=== PATIENT | female | born 1955 | race Caucasian/White ===

== ENCOUNTER 2022-11-15 19:04 | Emergency (ER) | payer MEDICARE, MEDICAID, SELFPAY ==
[2022-11-15 19:08] VITALS: BP 173/82; PULSE 74; RESP 18; TEMP 36.8; O2SAT 99; BMI 19.3
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
--- NOTE | 2022-11-15 19:55 | ECG_ITS ---
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
[2022-11-15 20:23] LABS: Basophils Percent Auto 0.4 % (0.2-2.0); Eosinophils Absolute Auto 0.1 10^3/uL (0.0-0.7); Eosinophils Percent Auto 1.9 % (0.9-7.0); Hematocrit 36.1 % (36.0-48.0); Hemoglobin 11.6 g/dL (12.0-16.0); Immature Granulocytes Abs Auto 0.03 10^3/uL (0.00-0.03); Immature Granulocytes Pct Auto 0.4 % (0.0-0.5); Lymphocytes Absolute Auto 1.8 10^3/uL (1.2-3.8); Lymphocytes Percent Auto 23.4 % (20.5-60.0); Mean Corpuscular HGB Conc 32.1 g/dL (29.9-35.2); Mean Corpuscular Hemoglobin 29.4 pg (26.7-34.0); Mean Corpuscular Volume 91.4 fL (81.0-99.0); Mean Platelet Volume 10.6 fL (9.5-13.5); Monocytes Absolute Auto 0.5 10^3/uL (0.3-0.8); Monocytes Percent Auto 6.5 % (1.7-12.0); Neutrophils Absolute Auto 5.1 10^3/uL (1.4-6.5); Neutrophils Percent Auto 67.4 % (43.0-75.0); Platelet Count 217 10^3/uL (150-450); Red Blood Count 3.95 10^6/uL (4.20-5.40); Red Cell Distribution Width 13.1 % (11.0-15.0); White Blood Count 7.5 10^3/uL (4.0-11.0)
[2022-11-15 20:44] LABS: Bilirubin Urine NEGATIVE (NEGATIVE); Blood Urine TRACE-I (NEGATIVE); Clarity Urine CLEAR (CLEAR); Color Urine LT. YELLOW (YELLOW); Glucose Urine UA NEGATIVE (NEGATIVE); Ketones Urine NEGATIVE (NEGATIVE); Leukocyte Esterase Urine SMALL (NEGATIVE); Nitrite Urine NEGATIVE (NEGATIVE); Protein Urine NEGATIVE (NEG/TRACE); Urobilinogen Urine 0.2 EU/dL (0.2-1.0)
[2022-11-15 20:45] LABS: Alanine Aminotransferase 13 U/L (14-59); Albumin Globulin Ratio 1.3; Albumin Level 3.8 g/dL (3.4-5.0); Alkaline Phosphatase 58 U/L (46-116); Anion Gap 10.1; Aspartate Amino Transferase 12 U/L (15-37); Bilirubin Total 0.3 mg/dL (0.2-1.0); Calcium 8.7 mg/dL (8.5-10.1); Carbon Dioxide 27.7 mmol/L (21.0-32.0); Chloride 105 mmol/L (98-107); Estimated GFR (African America 57 (>=60); Estimated GFR (Non-African Ame 47 (>=60); Glucose 139 mg/dL (74-106); Potassium 4.8 mmol/L (3.5-5.1); Salicylate <2.8 mg/dL (<=19.9); Sodium 138 mmol/L (136-145); Total Protein 6.8 g/dL (6.4-8.2)
[2022-11-15 20:47] LABS: Urine Microscopic Indicated YES
[2022-11-15 20:47] LABS: Acetaminophen <2.0 ug/mL (10.0-30.0); Ethanol <3 mg/dL
[2022-11-15 20:49] LABS: Free T4 1.08 ng/dL (0.76-1.46); Thyroid Stimulating Hormone 0.795 uIU/mL (0.358-3.740)
[2022-11-15 20:52] LABS: Amphetamine Screen Urine NEGATIVE (NEGATIVE); Barbiturates Screen Urine NEGATIVE (NEGATIVE); Benzodiazepines Screen Urine POSITIVE (NEGATIVE); Buprenorphine Screen Urine NEGATIVE (NEGATIVE); Cannabinoid Screen Urine POSITIVE (NEGATIVE); Cocaine Screen Urine NEGATIVE (NEGATIVE); Methadone Screen Urine NEGATIVE (NEGATIVE); Methamphetamines Screen Urine NEGATIVE (NEGATIVE); Opiate Screen Urine NEGATIVE (NEGATIVE); Oxycodone Screen Urine NEGATIVE (NEGATIVE); Phencyclidine Screen Urine NEGATIVE (NEGATIVE); Tricyclic Antidepressant Urine NEGATIVE (NEGATIVE)
[2022-11-15 20:57] LABS: Bacteria Urine SMALL #/HPF (NONE SEEN); Cast Seen? NONE SEEN #/LPF (NONE SEEN); Crystals Seen? None Seen #/HPF (None Seen); Mucus Urine NONE SEEN (NONE SEEN); RBC Urine 0-2 #/HPF (0-2); Squamous Epithelial Cell Urine FEW #/LPF (NONE/RARE); Urine Culture Indicated YES
[2022-11-16] MEDS: DIPHENHYDRAMINE HCL 25 MG CAPSULE 50 MG PO (00:44)
[2022-11-16] MEDS: ALPRAZOLAM 1 MG TABLET PO (01:40)
== END 2022-11-16 04:00 ==
PROVIDERS: Emergency Provider Internal Medicine
DX: F23 Brief psychotic disorder (principal); F41.9 Anxiety disorder, unspecified; Z79.899 Other long term (current) drug therapy; Z94.4 Liver transplant status; F12.90 Cannabis use, unspecified, uncomplicated
CPT/HCPCS: 36415; 80053; 80179; 80307; 80320; 80329; 81001; 84439; 84443; 85025; 87086; 93005; 99284

== ENCOUNTER 2024-05-06 12:51 | Emergency (ER) | payer MEDICARE, MEDICAID, SELFPAY ==
[2024-05-06] VITALS (27 sets, daily range): BP systolic 142–166; BP diastolic 72–120; PULSE 60–86; TEMP 36.5–36.6; O2SAT 92–100; BMI 24.9
--- NOTE | 2024-05-06 13:14 | ECG_ITS ---
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
--- NOTE | 2024-05-06 13:14 | XR_ITS ---
The [address] [address] Patient Name: ERICK ROLAND MRN: [id number] date: 1955 Sex: F Assigned Patient Location: ER Current Patient Location: ER Accession/Order Number: [id number] Exam Date: 05/06/2024 14:20 Report Date: 05/06/2024 16:00 At the request of: AISLINN PARRA Procedure: XR ribs LT min 3V w CXR1V EXAM: XR ribs LT min 3V w CXR1V HISTORY: fall left rib pain COMPARISON: None. TECHNIQUE: Single frontal view of the chest as well as 3 additional views of the left ribs FINDINGS: The heart size is normal. Left lung base atelectasis is seen. Small left pleural effusion may be seen. No obvious pneumothorax is seen. Acute mild displaced fractures of the posterior eighth, ninth, 10th and 11th rib is suspected. XR/XR ribs LT min 3V w CXR1V IMPRESSION: Acute mild displaced fractures of the posterior eighth, ninth, 10th and 11th rib is suspected. Left lung base atelectasis and likely small left pleural effusion. Electronically authenticated by: KATY HOLMAN Date: 05/06/2024 16:00
--- NOTE | 2024-05-06 13:16 | CT_ITS ---
The [address] [address] Patient Name: ERICK ROLAND MRN: [id number] date: 1955 Sex: F Assigned Patient Location: ER Current Patient Location: Accession/Order Number: [id number] Exam Date: 05/06/2024 14:10 Report Date: 05/06/2024 15:14 At the request of: AISLINN PARRA Procedure: CT head/brain wo con EXAMINATION: CT head/brain wo con HISTORY: fall COMPARISON: None. TECHNIQUE: Axial CT images through the head without intravenous contrast. Dose reduction techniques were achieved by using: automated exposure control and/or adjustment of mA and /or kV according to patient size and/or use of iterative reconstruction technique. FINDINGS: There is mild prominence of the ventricles and sulci. There is no evidence for acute intracranial hemorrhage. There is mild hypoattenuation in the supratentorial white matter, most compatible with chronic microvascular ischemia. There is no mass effect or midline shift. There are no abnormal extraaxial fluid collections. CT/CT head/brain wo con IMPRESSION: Negative for acute intracranial hemorrhage or acute intracranial process. Electronically authenticated by: MAYCOL TAPIA Date: 05/06/2024 15:14
--- NOTE | 2024-05-06 13:16 | CT_ITS ---
The [address] [address] Patient Name: ERICK ROLAND MRN: [id number] date: 1955 Sex: F Assigned Patient Location: ER Current Patient Location: ER Accession/Order Number: [id number] Exam Date: 05/06/2024 14:10 Report Date: 05/06/2024 15:16 At the request of: AISLINN PARRA Procedure: CT cervical spine wo con EXAM: CT cervical spine wo con HISTORY: fall, loc COMPARISON: None. TECHNIQUE: Contiguous transaxial was obtained through the cervical spine without contrast. FINDINGS: There is no prevertebral soft tissue swelling or acute cervical spine fracture. There is minimal superior endplate depression of T1, age indeterminate. There is mild degenerative disc disease of the cervical spine with minimal retrolisthesis of C3 on C4. There is uncovertebral joint osteophytes rightest at C3-4, C4-5, and C5-6. There is multilevel and bilateral facet joint osteoarthritis with bilateral C4-5 facet ankylosis. Uncovertebral and facet joint osteoarthritis contribute to neural foraminal narrowing. Neural foraminal narrowing is most pronounced on the right at C3-4. There is mild atlantodental articulation osteoarthritis. There is carotid artery atherosclerosis. CT/CT cervical spine wo con IMPRESSION: 1. No acute cervical spine fracture. However, there is minimal superior endplate depression of T1, age indeterminate. 2. Mild degenerative disc disease of the cervical spine with minimal retrolisthesis of C3 on C4. Associated uncovertebral and facet joint osteoarthritis contribute to neural foraminal narrowing that is most pronounced on the right at C3-4. 3. Carotid artery atherosclerosis. Electronically authenticated by: ALBERTA BERRY Date: 05/06/2024 15:16
[2024-05-06 13:52] LABS: Glucometer 118 mg/dL (74-106)
[2024-05-06 14:06] LABS: Basophils Absolute Auto 0.1 10^3/uL (0.0-0.1); Basophils Percent Auto 0.4 % (0.2-2.0); Eosinophils Absolute Auto 0.1 10^3/uL (0.0-0.7); Eosinophils Percent Auto 0.4 % (0.9-7.0); Hematocrit 41.2 % (36.0-48.0); Hemoglobin 13.7 g/dL (12.0-16.0); Immature Granulocytes Abs Auto 0.06 10^3/uL (0.00-0.03); Immature Granulocytes Pct Auto 0.5 % (0.0-0.5); Lymphocytes Absolute Auto 1.9 10^3/uL (1.2-3.8); Lymphocytes Percent Auto 15.3 % (20.5-60.0); Mean Corpuscular HGB Conc 33.3 g/dL (29.9-35.2); Mean Corpuscular Hemoglobin 29.3 pg (26.7-34.0); Mean Corpuscular Volume 88.2 fL (81.0-99.0); Mean Platelet Volume 10.5 fL (9.5-13.5); Monocytes Absolute Auto 0.9 10^3/uL (0.3-0.8); Monocytes Percent Auto 7.2 % (1.7-12.0); Neutrophils Absolute Auto 9.4 10^3/uL (1.4-6.5); Neutrophils Percent Auto 76.2 % (43.0-75.0); Platelet Count 281 10^3/uL (150-450); Red Blood Count 4.67 10^6/uL (4.20-5.40); Red Cell Distribution Width 13.9 % (11.0-15.0); White Blood Count 12.3 10^3/uL (4.0-11.0)
[2024-05-06 14:24] LABS: Alanine Aminotransferase 7 U/L (14-59); Albumin Globulin Ratio 1.1; Albumin Level 4.2 g/dL (3.4-5.0); Alkaline Phosphatase 164 U/L (46-116); Anion Gap 18.7; Aspartate Amino Transferase 23 U/L (15-37); BUN Creatinine Ratio 21.8; Bilirubin Total 0.3 mg/dL (0.2-1.0); Calcium 9.9 mg/dL (8.5-10.1); Carbon Dioxide 23.3 mmol/L (21.0-32.0); Chloride 100 mmol/L (98-107); Estimated GFR (African America 40 (>=60 mL/min/1.73m^2); Estimated GFR (Non-African Ame 33 (>=60 mL/min/1.73m^2); Globulin 3.7 g/dL; Glucose 123 mg/dL (74-106); INR 1.04; Partial Thromboplastin Time 29.5 sec (22.3-36.2); Sodium 137 mmol/L (136-145); Total Protein 7.9 g/dL (6.4-8.2)
[2024-05-06 14:33] LABS: Thyroid Stimulating Hormone 1.898 uIU/mL (0.358-3.740)
[2024-05-06] MEDS: MORPHINE SULFATE 2 MG/ML SYRINGE IV ×2 (14:34→16:28)
[2024-05-06] MEDS: ONDANSETRON PF 4 MG/2 ML VIAL IV ×2 (14:35→16:28)
[2024-05-06] MEDS: 0.9 % SODIUM CHLORIDE 1,000 ML 1000 ML IV (14:43)
--- NOTE | 2024-05-06 14:46 | ED_ITS ---
Documented by User: Bea Jeter 05/06/24 17:16 HPI HPI - General Adult General Chief complaint: Fall Stated complaint: POSSIBLE SEIZURE DIZZINESS RIB PAIN FALL Time Seen by Provider: 05/06/24 13:14 Mode of arrival: walk-in History of Present Illness HPI narrative: 69-year-old female presents to the emergency room by private car. Patient had a near syncopal event while in the shower earlier today. Daughter states her mom was in the shower she heard a thud. When she walked into the shower patient was shaking and then rolled over. She was able to speak. She now has left lateral chest wall pain. Patient has what sounds like a history of hypoglycemia where she when she does not eat she becomes dizzy and passes out. The last time was around . She has not seen cardiology for this or spoke to anyone else. Daughter states she sees [facility] physicians. They have not talked to them about this problem. She is denies a known history of hypoglycemia. Bedside glucose upon arrival to the emergency room was 118. She is alert and oriented. Denies any head or neck pain. Related Data Home Medications ?Medication ?Instructions ?Recorded ?Confirmed alprazolam 0.5 mg tablet (Xanax) 0.5 mg PO .4 times daily 11/15/22 05/06/24 cholecalciferol (vitamin D3) 125 5,000 unit PO DAILY 11/15/22 05/06/24 mcg (5,000 unit) capsule fluoxetine 40 mg capsule (Prozac) 40 mg PO BID 11/15/22 05/06/24 metoprolol succinate 25 mg 25 mg PO BID 11/15/22 05/06/24 tablet,extended release 24 hr tacrolimus 0.5 mg capsule, 0.5 mg PO DAILY 11/15/22 05/06/24 immediate-release zolpidem 5 mg tablet 5 mg PO .hs 11/15/22 05/06/24 carbidopa 25 mg-levodopa 100 mg 0.5 tab PO Q8H 05/06/24 05/06/24 tablet hydrocodone 5 mg-acetaminophen 325 1 tab PO Q4H PRN pain 05/06/24 05/06/24 mg tablet memantine 10 mg tablet 10 mg PO Q12H 05/06/24 05/06/24 omeprazole 40 mg capsule,delayed 40 mg PO DAILY 05/06/24 05/06/24 release oxcarbazepine 300 mg tablet 300 mg PO DAILY 05/06/24 05/06/24 rosuvastatin 5 mg tablet 5 mg PO DAILY 05/06/24 05/06/24 sertraline 50 mg tablet 50 mg PO Q24H 05/06/24 05/06/24 sertraline 50 mg tablet (Zoloft) 50 mg PO DAILY 05/06/24 05/06/24 trazodone 50 mg tablet 50 mg PO DAILY 05/06/24 05/06/24 Allergies Allergy/AdvReac Type Severity Reaction Status Date / Time No Known Drug Allergies Allergy Verified 11/15/22 19:13 Opioid HPI Opioid Management Most Recent Opioid Data: Last Pain Scale 4 05/06/24 14:34 05/06/24 Last MAY Pain Assessment 05/06/24 14:34 Ur Phencyclidine Scrn Negative (NEGATIVE) 11/15/22 20:20 10/22 09/12 Review of Systems ROS Narrative All Systems are negative except as noted/marked.All systems reviewed and otherwise negative PFSH PFSH Social History Little interest or pleasure in doing things: not at all Feeling down, depressed, or hopeless: not at all Exam Narrative Exam Narrative: Nurses note and vital signs reviewed and patient is not hypoxic. General: The patient appears well and in no apparent distress. Patient is resting comfortably on cart. Skin: Warm, dry, no pallor noted. There is no rash noted. Head: Normocephalic, atraumatic Eye: Normal conjunctiva, no drainage, EOMI. PERRL Ears, Nose, Mouth, and Throat: oral mucosa is moist. Nares patent. Mouth without vesicles. Ear canals patent. Tm's without Erythema Cardiovascular: Regular Rate and Rhythm: left sided chest wall pain no crepitus Respiratory: Patient is in no distress, no accessory muscle use, lungs are clear to auscultation, no wheezing, rales or rhonchi Back: non-tender, no CVA tenderness bilaterally to percussion. GI: Normal bowel sounds, no tenderness to palpation, no masses appreciated. No rebound, guarding, or rigidity noted. Musculoskeletal: The patient has no evidence of calf tenderness, no pitting edema, symmetrical pulses noted bilaterally Neurological: A&O x4, normal speech Psychiatric: Cooperative Constitutional Vital Signs, click to edit/add: Last Vital Signs Temp 97.7 F 05/06/24 15:52 Pulse 81 05/06/24 16:51 Resp 19 05/06/24 16:51 BP 145/97 H 05/06/24 16:51 Pulse Ox 97 05/06/24 16:51 O2 Del Method Room Air 05/06/24 15:52 Course Vital Signs Vital signs: Vital Signs Temperature 97.9 F 05/06/24 12:57 Pulse Rate 60 05/06/24 12:57 Respiratory Rate 18 05/06/24 12:57 Blood Pressure 142/72 H 05/06/24 12:57 Pulse Oximetry 100 05/06/24 12:57 Oxygen Delivery Method Room Air 05/06/24 12:57 Temperature 97.7 F 05/06/24 15:52 Pulse Rate 81 05/06/24 16:51 Respiratory Rate 19 05/06/24 16:51 Blood Pressure 145/97 H 05/06/24 16:51 Pulse Oximetry 97 05/06/24 16:51 Oxygen Delivery Method Room Air 05/06/24 15:52 Medical Decision Making MDM Narrative Medical decision making narrative: 69-year-old female presents to the emergency room by private car. Patient had a near syncopal event while in the shower earlier today. Daughter states her mom was in the shower she heard a thud. When she walked into the shower patient was shaking and then rolled over. She was able to speak. She now has left lateral chest wall pain. Patient has what sounds like a history of hypoglycemia where she when she does not eat she becomes dizzy and passes out. The last time was around Leonila. She has not seen cardiology for this or spoke to anyone else. Daughter states she sees [facility] physicians. They have not talked to them about this problem. She is denies a known history of hypoglycemia. Bedside glucose upon arrival to the emergency room was 118. She is alert and oriented. Denies any head or neck pain. Patient presented after having a syncopal event at home. Patient reports having similar episodes after not eating for certain period of time before. She denies any chest pain denies shortness of breath. She does have left-sided rib pain. Head and neck CT were performed today as well as blood work including troponin. Patient's chest x-ray shows a 10/29/09, 11 left-sided rib fractures. Medicated here with Zofran Toradol and also given fluids. Patient's blood work CBC and CMP reviewed. Patient's BUN/creatinine were elevated consistent with dehydration. Patient states she had been drinking appropriately. Patient was given a liter of IV fluids here. Discharged home with a small prescription of Drums. She does live with her daughter. Instructed to follow-up with her primary care physician for syncopal event and rib fractures. Patient was also given Pep therapy here in the emergency room discharged home with Pep. Patient feels better after morphine and was to go ready to go home. The emergency room were discussed. Patient vital signs are stable discharge. Differential Diagnosis Differential Diagnosis: , Chest wall injury, rib fracture, near syncope Medical Records Medical records reviewed: Yes I reviewed the patient's medical records Lab Data Lab results reviewed: Yes I reviewed the patient's lab results Labs: Lab Results 05/06/24 05/06/24 Range/Units 13:45 13:49 WBC 12.3 H (4.0-11.0) 10^3/uL RBC 4.67 (4.20-5.40) 10^6/uL Hgb 13.7 (12.0-16.0) g/dL Hct 41.2 (36.0-48.0) % MCV 88.2 (81.0-99.0) fL MCH 29.3 (26.7-34.0) pg MCHC 33.3 (29.9-35.2) g/dL RDW 13.9 (11.0-15.0) % Plt Count 281 (150-450) 10^3/uL MPV 10.5 (9.5-13.5) fL Neut % (Auto) 76.2 H (43.0-75.0) % Lymph % (Auto) 15.3 L (20.5-60.0) % Stark % (Auto) 7.2 (1.7-12.0) % Eos % (Auto) 0.4 L (0.9-7.0) % Baso % (Auto) 0.4 (0.2-2.0) % Neut # (Auto) 9.4 H (1.4-6.5) 10^3/uL Lymph # (Auto) 1.9 (1.2-3.8) 10^3/uL Stark # (Auto) 0.9 H (0.3-0.8) 10^3/uL Eos # (Auto) 0.1 (0.0-0.7) 10^3/uL Baso # (Auto) 0.1 (0.0-0.1) 10^3/uL Abs Immat Gran (auto) 0.06 H (0.00-0.03) 10^3/uL Imm/Tot Granulo (auto) 0.5 (0.0-0.5) % PT 11.0 (9.0-11.6) sec INR 1.04 APTT 29.5 (22.3-36.2) sec Sodium 137 (136-145) mmol/L Potassium 5.0 (3.5-5.1) mmol/L Chloride 100 (98-107) mmol/L Carbon Dioxide 23.3 (21.0-32.0) mmol/L Anion Gap 18.7 BUN 34.0 H (7.0-18.0) mg/dL Creatinine 1.56 H (0.55-1.02) mg/dL Est GFR ( Amer) 40 L (>=60 mL/min/1.73m^2) Est GFR (Non-Af Amer) 33 L (>=60 mL/min/1.73m^2) BUN/Creatinine Ratio 21.8 Glucose 123 H (74-106) mg/dL Calcium 9.9 (8.5-10.1) mg/dL Total Bilirubin 0.3 (0.2-1.0) mg/dL AST 23 (15-37) U/L ALT 7 L (14-59) U/L Alkaline Phosphatase 164 H (46-116) U/L Troponin I High Sens 7.0 (4.0-51.3) pg/mL Total Protein 7.9 (6.4-8.2) g/dL Albumin 4.2 (3.4-5.0) g/dL Globulin 3.7 g/dL Albumin/Globulin Ratio 1.1 TSH 1.898 (0.358-3.740) uIU/mL POC Glucose 118 H (74-106) mg/dL Imaging Data Chest x-ray: Attestation: I have reviewed the pertinent imaging results. Radiologist's impression: ITS Impressions Ribs X-Ray 05/06/24 13:14 IMPRESSION: Acute mild displaced fractures of the posterior eighth, ninth, 10th and 11th rib is suspected. Left lung base atelectasis and likely small left pleural effusion. Electronically authenticated by: KATY HOLMAN Date: 05/06/2024 16:[address] 05/06/24 13:16 IMPRESSION: 1. No acute cervical spine fracture. However, there is minimal superior endplate depression of T1, age indeterminate. 2. Mild degenerative disc disease of the cervical spine with minimal retrolisthesis of C3 on C4. Associated uncovertebral and facet joint osteoarthritis contribute to neural foraminal narrowing that is most pronounced on the right at C3-4. 3. Carotid artery atherosclerosis. Electronically authenticated by: ALBERAT BERRY Date: 05/06/2024 15:[address] 05/06/24 13:16 IMPRESSION: Negative for acute intracranial hemorrhage or acute intracranial process. Electronically authenticated by: MAYCOL TAPIA Date: 05/06/2024 15:14 ECG Data Interpretation: 1307 sinus rhythm with a rate of 59 bpm WA interval 160 ms cures duration 78 ms artifact noted no STEMI Discharge Plan Discharge Chief Complaint: Fall Clinical Impression: Syncope, Fracture, ribs Patient Disposition: Home, Self-Care Time of Disposition Decision: 16:49 Condition: Good Mode of Transportation: Private Vehicle Prescriptions / Home Meds: No Action fluoxetine [Prozac] 40 mg capsule 40 mg PO BID Rx Instructions: administer in the morning and at noon/midday metoprolol succinate 25 mg tablet extended release 24 hr 25 mg PO BID alprazolam [Xanax] 0.5 mg tablet 0.5 mg PO .4 times daily cholecalciferol (vitamin D3) 125 mcg (5,000 unit) capsule 5,000 unit PO DAILY tacrolimus 0.5 mg capsule 0.5 mg PO DAILY zolpidem 5 mg tablet 5 mg PO .hs sertraline [Zoloft] 50 mg tablet 50 mg PO DAILY memantine 10 mg tablet 10 mg PO Q12H carbidopa-levodopa 25-100 mg tablet 0.5 tab PO Q8H oxcarbazepine 300 mg tablet 300 mg PO DAILY rosuvastatin 5 mg tablet 5 mg PO DAILY sertraline 50 mg tablet 50 mg PO Q24H trazodone 50 mg tablet 50 mg PO DAILY omeprazole 40 mg capsule,delayed release(DR/EC) 40 mg PO DAILY hydrocodone-acetaminophen 5-325 mg tablet 1 tab PO Q4H PRN (Reason: pain) Print Language: Ethiopian Instructions: Rib Fracture (ED), Syncope (ED) Additional Instructions: follow up with primary care physcian at [facility] on 05/09/24 Referrals: Physician,Non-Staff, [Primary Care Provider] - 1 week Discharge Date/Time: 05/06/24 17:15 Documented by User: Alejandro Myers MD 05/06/24 19:19 HPI HPI - General Adult General Chief complaint: Fall Stated complaint: POSSIBLE SEIZURE DIZZINESS RIB PAIN FALL Time Seen by Provider: 05/06/24 13:14 Related Data Home Medications ?Medication ?Instructions ?Recorded ?Confirmed alprazolam 0.5 mg tablet (Xanax) 0.5 mg PO .4 times daily 11/15/22 05/06/24 cholecalciferol (vitamin D3) 125 5,000 unit PO DAILY 11/15/22 05/06/24 mcg (5,000 unit) capsule fluoxetine 40 mg capsule (Prozac) 40 mg PO BID 11/15/22 05/06/24 metoprolol succinate 25 mg 25 mg PO BID 11/15/22 05/06/24 tablet,extended release 24 hr tacrolimus 0.5 mg capsule, 0.5 mg PO DAILY 11/15/22 05/06/24 immediate-release zolpidem 5 mg tablet 5 mg PO .hs 11/15/22 05/06/24 carbidopa 25 mg-levodopa 100 mg 0.5 tab PO Q8H 05/06/24 05/06/24 tablet hydrocodone 5 mg-acetaminophen 325 1 tab PO Q4H PRN pain 05/06/24 05/06/24 mg tablet memantine 10 mg tablet 10 mg PO Q12H 05/06/24 05/06/24 omeprazole 40 mg capsule,delayed 40 mg PO DAILY 05/06/24 05/06/24 release oxcarbazepine 300 mg tablet 300 mg PO DAILY 05/06/24 05/06/24 rosuvastatin 5 mg tablet 5 mg PO DAILY 05/06/24 05/06/24 sertraline 50 mg tablet 50 mg PO Q24H 05/06/24 05/06/24 sertraline 50 mg tablet (Zoloft) 50 mg PO DAILY 05/06/24 05/06/24 trazodone 50 mg tablet 50 mg PO DAILY 05/06/24 05/06/24 Allergies Allergy/AdvReac Type Severity Reaction Status Date / Time No Known Drug Allergies Allergy Verified 11/15/22 19:13 Opioid HPI Opioid Management Most Recent Opioid Data: Last Pain Scale 4 05/06/24 14:34 05/06/24 Last MAR Pain Assessment 05/06/24 14:34 Ur Phencyclidine Scrn Negative (NEGATIVE) 11/15/22 20:20 10/22 09/12 PFSH PFSH Social History Little interest or pleasure in doing things: not at all Feeling down, depressed, or hopeless: not at all Exam Constitutional Vital Signs, click to edit/add: Last Vital Signs Temp 97.7 F 05/06/24 15:52 Pulse 81 05/06/24 16:51 Resp 19 05/06/24 16:51 BP 145/97 H 05/06/24 16:51 Pulse Ox 97 05/06/24 16:51 O2 Del Method Room Air 05/06/24 15:52 Course Vital Signs Vital signs: Vital Signs Temperature 97.9 F 05/06/24 12:57 Pulse Rate 60 05/06/24 12:57 Respiratory Rate 18 05/06/24 12:57 Blood Pressure 142/72 H 05/06/24 12:57 Pulse Oximetry 100 05/06/24 12:57 Oxygen Delivery Method Room Air 05/06/24 12:57 Temperature 97.7 F 05/06/24 15:52 Pulse Rate 81 05/06/24 16:51 Respiratory Rate 19 05/06/24 16:51 Blood Pressure 145/97 H 05/06/24 16:51 Pulse Oximetry 97 05/06/24 16:51 Oxygen Delivery Method Room Air 05/06/24 15:52 Medical Decision Making MDM Narrative Medical decision making narrative: 69-year-old female presents to the emergency room by private car. Patient had a near syncopal event while in the shower earlier today. Daughter states her mom was in the shower she heard a thud. When she walked into the shower patient was shaking and then rolled over. She was able to speak. She now has left lateral chest wall pain. Patient has what sounds like a history of hypoglycemia where she when she does not eat she becomes dizzy and passes out. The last time was around s Leonila. She has not seen cardiology for this or spoke to anyone else. Daughter states she sees [facility] physicians. They have not talked to them about this problem. She is denies a known history of hypoglycemia. Bedside glucose upon arrival to the emergency room was 118. She is alert and oriented. Denies any head or neck pain. Patient presented after having a syncopal event at home. Patient reports having similar episodes after not eating for certain period of time before. She denies any chest pain denies shortness of breath. She does have left-sided rib pain. Head and neck CT were performed today as well as blood work including troponin. Patient's chest x-ray shows a 8, 11 left-sided rib fractures. Medicated here with Zofran Toradol and also given fluids. Patient's blood work CBC and CMP reviewed. Patient's BUN/creatinine were elevated consistent with dehydra tion. Patient states she had been drinking appropriately. Patient was given a liter of IV fluids here. Discharged home with a small prescription of Drums. She does live with her daughter. Instructed to follow-up with her primary care physician for syncopal event and rib fractures. Patient was also given Pep therapy here in the emergency room discharged home with Pep. Patient feels better after morphine and was to go ready to go home. The emergency room were discussed. Patient vital signs are stable discharge. I, Dr Myers, have reviewed the above progress note and course of action in the ER; agree with the above. I have personally gone over history and physical, and discussed disposition and treatment plan with the patient. Lab Data Labs: Lab Results 05/06/24 05/06/24 Range/Units 13:45 13:49 WBC 12.3 H (4.0-11.0) 10^3/uL RBC 4.67 (4.20-5.40) 10^6/uL Hgb 13.7 (12.0-16.0) g/dL Hct 41.2 (36.0-48.0) % MCV 88.2 (81.0-99.0) fL MCH 29.3 (26.7-34.0) pg MCHC 33.3 (29.9-35.2) g/dL RDW 13.9 (11.0-15.0) % Plt Count 281 (150-450) 10^3/uL MPV 10.5 (9.5-13.5) fL Neut % (Auto) 76.2 H (43.0-75.0) % Lymph % (Auto) 15.3 L (20.5-60.0) % Stark % (Auto) 7.2 (1.7-12.0) % Eos % (Auto) 0.4 L (0.9-7.0) % Baso % (Auto) 0.4 (0.2-2.0) % Neut # (Auto) 9.4 H (1.4-6.5) 10^3/uL Lymph # (Auto) 1.9 (1.2-3.8) 10^3/uL Stark # (Auto) 0.9 H (0.3-0.8) 10^3/uL Eos # (Auto) 0.1 (0.0-0.7) 10^3/uL Baso # (Auto) 0.1 (0.0-0.1) 10^3/uL Abs Immat Gran (auto) 0.06 H (0.00-0.03) 10^3/uL Imm/Tot Granulo (auto) 0.5 (0.0-0.5) % PT 11.0 (9.0-11.6) sec INR 1.04 APTT 29.5 (22.3-36.2) sec Sodium 137 (136-145) mmol/L Potassium 5.0 (3.5-5.1) mmol/L Chloride 100 (98-107) mmol/L Carbon Dioxide 23.3 (21.0-32.0) mmol/L Anion Gap 18.7 BUN 34.0 H (7.0-18.0) mg/dL Creatinine 1.56 H (0.55-1.02) mg/dL Est GFR ( Amer) 40 L (>=60 mL/min/1.73m^2) Est GFR (Non-Af Amer) 33 L (>=60 mL/min/1.73m^2) BUN/Creatinine Ratio 21.8 Glucose 123 H (74-106) mg/dL Calcium 9.9 (8.5-10.1) mg/dL Total Bilirubin 0.3 (0.2-1.0) mg/dL AST 23 (15-37) U/L ALT 7 L (14-59) U/L Alkaline Phosphatase 164 H (46-116) U/L Troponin I High Sens 7.0 (4.0-51.3) pg/mL Total Protein 7.9 (6.4-8.2) g/dL Albumin 4.2 (3.4-5.0) g/dL Globulin 3.7 g/dL Albumin/Globulin Ratio 1.1 TSH 1.898 (0.358-3.740) uIU/mL POC Glucose 118 H (74-106) mg/dL Imaging Data Chest x-ray: Radiologist's impression: ITS Impressions Ribs X-Ray 05/06/24 13:14 IMPRESSION: Acute mild displaced fractures of the posterior eighth, ninth, 10th and 11th rib is suspected. Left lung base atelectasis and likely small left pleural effusion. Electronically authenticated by: KATY HOLMAN Date: 05/06/2024 16:[address] 05/06/24 13:16 IMPRESSION: 1. No acute cervical spine fracture. However, there is minimal superior endplate depression of T1, age indeterminate. 2. Mild degenerative disc disease of the cervical spine with minimal retrolisthesis of C3 on C4. Associated uncovertebral and facet joint osteoarthritis contribute to neural foraminal narrowing that is most pronounced on the right at C3-4. 3. Carotid artery atherosclerosis. Electronically authenticated by: ALBERTA BERRY Date: 05/06/2024 15:[address] 05/06/24 13:16 IMPRESSION: Negative for acute intracranial hemorrhage or acute intracranial process. Electronically authenticated by: MAYCOL TAPIA Date: 05/06/2024 15:14 Discharge Plan Discharge Chief Complaint: Fall Clinical Impression: Syncope, Fracture, ribs Patient Disposition: Home, Self-Care Time of Disposition Decision: 16:49 Condition: Good Mode of Transportation: Private Vehicle Prescriptions / Home Meds: No Action fluoxetine [Prozac] 40 mg capsule 40 mg PO BID Rx Instructions: administer in the morning and at noon/midday metoprolol succinate 25 mg tablet extended release 24 hr 25 mg PO BID alprazolam [Xanax] 0.5 mg tablet 0.5 mg PO .4 times daily cholecalciferol (vitamin D3) 125 mcg (5,000 unit) capsule 5,000 unit PO DAILY tacrolimus 0.5 mg capsule 0.5 mg PO DAILY zolpidem 5 mg tablet 5 mg PO .hs sertraline [Zoloft] 50 mg tablet 50 mg PO DAILY memantine 10 mg tablet 10 mg PO Q12H carbidopa-levodopa 25-100 mg tablet 0.5 tab PO Q8H oxcarbazepine 300 mg tablet 300 mg PO DAILY rosuvastatin 5 mg tablet 5 mg PO DAILY sertraline 50 mg tablet 50 mg PO Q24H trazodone 50 mg tablet 50 mg PO DAILY omeprazole 40 mg capsule,delayed release(DR/EC) 40 mg PO DAILY hydrocodone-acetaminophen 5-325 mg tablet 1 tab PO Q4H PRN (Reason: pain) Print Language: Ethiopian Instructions: Rib Fracture (ED), Syncope (ED) Additional Instructions: follow up with primary care physcian at [facility] on 05/09/24 Referrals: Physician,Non-Staff, MD [Primary Care Provider] - 1 week Discharge Date/Time: 05/06/24 17:15
[2024-05-06] MEDS: KETOROLAC TROMETHAMINE 30 MG/ML VIAL IVP (16:28)
== END 2024-05-06 17:15 | disposition home or self-care (01) ==
PROVIDERS: Physician Assistant; Emergency Provider Emergency Medicine
DX: S22.42XA Multiple fractures of ribs, left side, initial encounter for closed fracture (principal); W18.2XXA Fall in (into) shower or empty bathtub, initial encounter; R55 Syncope and collapse; E86.0 Dehydration; Z79.899 Other long term (current) drug therapy
CPT/HCPCS: 36415; 70450; 71101; 72125; 80053; 80307; 81001; 82948; 84443; 84484; 85025; 85610; 85730; 93005; 94667; 96361; 96374; 96375; 96376; 99285; J1885; J2270; J2405